=== PATIENT | female | born 1965 | race Caucasian/White ===

== ENCOUNTER → 2016-09-17 | Outpatient (CLI) | payer MEDICAID | LOC: RAD 13:42 | PROVIDERS: ATTEND Urology | DX: N31.9 Neuromuscular dysfunction of bladder, unspecified (principal) | CPT/HCPCS: 74000; 76770 ==

== ENCOUNTER → 2016-09-28 | Outpatient (CLI) | payer MEDICAID | LOC: RAD 11:52 | PROVIDERS: ATTEND Internal Medicine Critical Care Medicine | DX: R91.8 Other nonspecific abnormal finding of lung field (principal); J30.9 Allergic rhinitis, unspecified; G47.00 Insomnia, unspecified; R53.83 Other fatigue; G47.33 Obstructive sleep apnea (adult) (pediatric) | CPT/HCPCS: 71250 ==

== ENCOUNTER → 2020-01-15 | Outpatient (CLI) | payer MEDICARE, MEDICAID ==
[2020-01-15 12:42] LABS: ALBUMIN 4.6 g/dL (3.5-5.0); ALKALINE PHOSPHATASE 78 U/L (38-126); AMYLASE 45 U/L (30-110); ASPARTATE AMINO TRANSFERASE 33 U/L (14-36); BILIRUBIN,TOTAL 0.9 mg/dL (0.2-1.3)
== END ==
LOC: OD 11:41
PROVIDERS: ATTEND Internal Medicine Gastroenterology
DX: R10.13 Epigastric pain (principal)
CPT/HCPCS: 36415; 80076; 82150; 83690

== ENCOUNTER → 2020-01-18 | Outpatient (CLI) | payer MEDICARE, MEDICAID ==
--- NOTE | 2020-01-18 17:02 | RADIOLOGY REPORT (SQ) ---
EXAM DESCRIPTION: CT ABDOMEN WITH IV ORAL CONT IMAGES COMPLETED DATE/TIME: 01/18/2020 2:10 pm REASON FOR STUDY: ABD PAIN, EPIGASTRIC (R10.13), ABN WEIGHT LOSS (R63.4) R10.13 EPIGASTRIC PAIN COMPARISON: CT of the abdomen and pelvis with contrast from 08/03/2015 TECHNIQUE: CT scan of the abdomen performed with intravenous and without oral contrast using helical scanning technique with dynamic intravenous contrast injection. Images reviewed with lung, soft tiss ue, and bone windows. Reconstructed coronal and sagittal MPR images reviewed. Delayed images for eval uation of the urinary system also acquired and evaluated. All images stored on PACS. All CT scanners at this facility use dose modulation, iterative reconstruc tion, and/or weight based dosing when appropriate to reduce radiation dose to as low as reasonably ac hievable (ALARA). [facility]: Dose Right [facility]: CareDose [facility]: Dose Right [facility]: Teradose 4D [facility]: Organica Water CONTRAST TYPE AND DOSE: Contrast/concentration: Isovue 350.00 mg/ml; Total Contrast Delivered: 100.0 ml; Total Saline Delivered: 72.0 ml RENAL FUNCTION: GFR > 60. RADIATION DOSE: CT Rad equipment meets quality standard of care and radiation dose reduction techniq ues were employed. CTDIvol: 17.5 - 17.5 mGy. DLP: 1141 mGy-cm. LIMITATIONS: None. FINDINGS: LOWER CHEST: No acute findings. LIVER: The diffuse low attenuation hepatic parenchyma relative to the splenic parenchyma on the kurtis l venous phase is suggestive of on the line hepatic steatosis. SPLEEN: The spleen is enlarged and it measures 14.5 cm in AP diameter. PANCREAS: No acute gross abnormality of the pancreas GALLBLADDER: No abnormality that is apparent on CT. ADRENAL GLANDS: No mass or asymmetry. RIGHT KIDNEY AND URETER: No solid mass, hydronephrosis, nephrolithiasis, hydroureter or ureterolithi asis. LEFT KIDNEY AND URETER: No solid mass, hydronephrosis, nephrolithiasis, hydroureter or ureterolithias is. AORTA AND VESSELS: No aneurysm or dissection of the abdominal aorta. RETROPERITONEUM: No retroperitoneal adenopathy, hemorrhage or mass. BOWEL AND PERITONEAL CAVITY: No bowel obstruction, bowel wall thickening or pericolonic/ perienteric inflammation. No mesenteric adenopathy, free intraperitoneal fluid or mesenteric/ omental inflammati on APPENDIX: Excluded from the [id number] of the CT. ABDOMINAL WALL: Grade 1 anterolisthesis BONES: Grade 1 anterolisthesis of L4 relative L5 and postoperative findings related to a spinal dysra phism. OTHER: No other finding. IMPRESSION: 1. No acute intra-abdominal abnormality. 2. Splenomegaly. 3. Hepatic steatosis. TECHNICAL DOCUMENTATION: JOB ID: [id number] Quality ID # [id number]: Final reports with documentation of one or more dose reduction techniques (e.g., Au tomated exposure control, adjustment of the mA and/or kV according to patient size, use of iterative reconstruction technique) 2010 [employer]- All Rights Reserved Reading location - IP/workstation name: [email or web address]
== END ==
LOC: RAD 13:35
PROVIDERS: ATTEND Internal Medicine Gastroenterology
DX: R10.13 Epigastric pain (principal)
CPT/HCPCS: 74160; 82565